=== PATIENT | male | born 1945 ===

== ENCOUNTER 2018-07-21 10:34 | Outpatient (REF) | payer MEDICARE, SELFPAY ==
[2018-07-21 22:30] LABS: Anion Gap 11.5 mmol/L (3-11); BUN 21 mg/dL (7-18); CO2 26.5 mmol/L (21.0-32.0); CREATININE 0.97 mg/dL (0.70-1.30); Calcium 9.1 mg/dL (8.5-10.1); Chloride 102 mmol/L (98-107); Cholesterol 262 mg/dL (50-200); Glucose 78 mg/dL (70-100); HDL Cholesterol 83 mg/dL (40-60); LDL CHOLESTEROL 164 mg/dL (<100); Potassium 5.1 mmol/L (3.5-5.1); Sodium 140 mmol/L (136-145); Triglyceride 63 mg/dL (30-150)
== END 2018-07-21 10:54 ==
LOC: NCHCN 10:34
PROVIDERS: PCP Internal Medicine; Visit Provider Internal Medicine
DX: E78.89 Other lipoprotein metabolism disorders (principal); Z13.6 Encounter for screening for cardiovascular disorders
CPT/HCPCS: 80048; 80061; 83721